=== PATIENT | female | born 1995 | race Caucasian/White ===

== ENCOUNTER 2019-06-09 11:14 | Inpatient (IN) | payer OTHER ==
[2019-06-09] MEDS ORDERED: METHYLERGONOVINE 0.2 MG INJ IM (14:30)
[2019-06-09] MEDS ORDERED: LIDOCAINE 1% (MPF) 30 ML INJ INJ (14:30)
[2019-06-09] MEDS ORDERED: OXYTOCIN 30 UNITS/LR 500 ML IV ×3 (14:30)
[2019-06-09] MEDS ORDERED: MISOPROSTOL 200 MCG TAB PR (14:30)
[2019-06-09] MEDS ORDERED: CARBOPROST 250 MCG INJ IM (14:30)
[2019-06-09 15:13] LABS: ADD MAN DIFF? NO
[2019-06-09 15:18] LABS: WHITE BLOOD COUNT 11.5 10^3/ul (4.8-10.8)
[2019-06-09 15:18] LABS: BASOPHIL # 0.1 10^3/ul (0.0-0.1); BASOPHILS % 0.6 % (0.0-2.0); EOSINOPHILS % 0.3 % (0.0-7.0); HEMOGLOBIN 9.9 g/dl (12.0-16.0); LYMPHOCYTES # 2.3 10^3/ul (0.8-2.9); LYMPHOCYTES % 19.6 % (15.0-51.0); MEAN CORPUSCULAR HEMOGLOBIN 22.3 pg (29.0-33.0); MEAN CORPUSCULAR VOLUME 74.3 fl (82.0-101.0); MEAN PLATELET VOLUME 10.3 fl (7.4-10.4); MONOCYTE # 0.4 10^3/ul (0.3-0.9); MONOCYTES % 3.6 % (0.0-11.0); NEUTROPHIL # 8.6 10^3/ul (1.6-7.5); NEUTROPHILS % 75.4 % (39.0-77.0); NUCLEATED RED BLOOD CELLS% 0.2 /100WBC (0.0-0.0); PLATELET COUNT 336 10^3/UL (140-415); RED BLOOD COUNT 4.44 10^6/ul (4.20-5.40); RED CELL DISTRIBUTION WIDTH 16.8 % (11.5-14.5)
[2019-06-09] MEDS: LACTATED RINGER'S 1,000 ML IV ×2 (15:23→22:58)
[2019-06-09 15:37] LABS: PROTIME 12.3 Sec (11.9-14.9)
[2019-06-09 15:38] LABS: PARTIAL THROMBOPLASTIN TIME 22.1 Sec (23.0-35.0)
[2019-06-09 16:10] LABS: HEPATITIS B SURFACE ANTIGEN NEGATIVE (NEGATIVE)
[2019-06-09] MEDS: OXYTOCIN 30 UNITS/LR 500 ML IV (22:05)
[2019-06-10] MEDS ORDERED: LACTATED RINGER'S 1,000 ML IV (01:12)
[2019-06-10] MEDS: BUTORPHANOL 2 MG INJ IV (01:19)
[2019-06-10] MEDS ORDERED: MINERAL OIL LIGHT 10 ML VIAL TOP (01:30)
[2019-06-10] MEDS ORDERED: FENTAnyl 2MCG/ML-ROPIV 0.2% 100 ML (02:36)
[2019-06-10] MEDS ORDERED: NALOXONE (0.4 MG/ML) INJ IV (03:00)
[2019-06-10] MEDS ORDERED: FENTAnyl 2MCG/ML-ROPIV 0.2% 100 ML BAG EPI (03:00)
[2019-06-10] MEDS: LACTATED RINGER'S 1,000 ML IV (04:00)
[2019-06-10] MEDS: LACTATED RINGER'S 1,000 ML IV* ×3 (07:37→23:37)
[2019-06-10] MEDS ORDERED: CARBOPROST 250 MCG INJ IM (08:00)
[2019-06-10] MEDS ORDERED: HYDROCODONE/APAP (5/325) TAB PO (08:00)
[2019-06-10] MEDS ORDERED: OXYTOCIN 30 UNITS/LR 500 ML IV (08:00)
[2019-06-10] MEDS ORDERED: METHYLERGONOVINE 0.2 MG INJ IM (08:00)
[2019-06-10] MEDS ORDERED: MISOPROSTOL 200 MCG TAB PR (08:00)
[2019-06-10] MEDS: IBUPROFEN 600 MG TAB PO ×3 (12:23→20:10)
[2019-06-10] MEDS: LANOLIN HPA 1 PKT TOP (12:24)
[2019-06-10] MEDS: BENZOCAINE 20% 56 ML SPRAY TOP (12:24)
[2019-06-10] MEDS: OXYTOCIN 30 UNITS/LR 500 ML IV ×2 (15:09→17:37)
[2019-06-10 15:11] LABS: RAPID PLASMA REAGIN NONREACTIVE (NR)
[2019-06-11] MEDS: IBUPROFEN 600 MG TAB PO ×3 (05:43→17:54)
[2019-06-11] MEDS: LACTATED RINGER'S 1,000 ML IV* ×3 (07:37→23:37)
[2019-06-11 08:52] LABS: ADD MAN DIFF? NO
[2019-06-11 08:55] LABS: WHITE BLOOD COUNT 13.6 10^3/ul (4.8-10.8)
[2019-06-11 08:55] LABS: BASOPHIL # 0.1 10^3/ul (0.0-0.1); BASOPHILS % 0.5 % (0.0-2.0); EOSINOPHILS # 0.1 10^3/ul (0.0-0.5); EOSINOPHILS % 0.8 % (0.0-7.0); HEMATOCRIT 29.5 % (37.0-47.0); HEMOGLOBIN 8.8 g/dl (12.0-16.0); LYMPHOCYTES # 2.2 10^3/ul (0.8-2.9); LYMPHOCYTES % 16.3 % (15.0-51.0); MEAN CORPUSCULAR HEMOGLOBIN 22.6 pg (29.0-33.0); MEAN CORPUSCULAR HGB CONC 29.8 g/dl (32.0-37.0); MEAN CORPUSCULAR VOLUME 75.6 fl (82.0-101.0); MEAN PLATELET VOLUME 9.9 fl (7.4-10.4); MONOCYTE # 0.7 10^3/ul (0.3-0.9); MONOCYTES % 4.9 % (0.0-11.0); NEUTROPHIL # 10.4 10^3/ul (1.6-7.5); NEUTROPHILS % 76.9 % (39.0-77.0); PLATELET COUNT 279 10^3/UL (140-415); RED CELL DISTRIBUTION WIDTH 17.2 % (11.5-14.5)
[2019-06-11] MEDS: FERROUS SULFATE (EC) 325 MG TAB PO (10:14)
[2019-06-11] MEDS: ASCORBIC ACID 500 MG TAB PO (10:14)
[2019-06-11] MEDS: LANOLIN HPA 1 PKT TOP (20:28)
[2019-06-12] MEDS: IBUPROFEN 600 MG TAB PO ×3 (00:27→12:09)
[2019-06-12 06:05] LABS: ADD MAN DIFF? NO
[2019-06-12 06:12] LABS: WHITE BLOOD COUNT 9.9 10^3/ul (4.8-10.8)
[2019-06-12 06:12] LABS: BASOPHIL # 0.1 10^3/ul (0.0-0.1); BASOPHILS % 0.7 % (0.0-2.0); EOSINOPHILS # 0.1 10^3/ul (0.0-0.5); EOSINOPHILS % 0.7 % (0.0-7.0); HEMATOCRIT 29.7 % (37.0-47.0); HEMOGLOBIN 8.8 g/dl (12.0-16.0); LYMPHOCYTES % 19.9 % (15.0-51.0); MEAN CORPUSCULAR HEMOGLOBIN 22.5 pg (29.0-33.0); MEAN CORPUSCULAR HGB CONC 29.6 g/dl (32.0-37.0); MEAN PLATELET VOLUME 9.6 fl (7.4-10.4); MONOCYTE # 0.7 10^3/ul (0.3-0.9); MONOCYTES % 6.9 % (0.0-11.0); NEUTROPHIL # 7.1 10^3/ul (1.6-7.5); NEUTROPHILS % 71.4 % (39.0-77.0); PLATELET COUNT 289 10^3/UL (140-415); RED BLOOD COUNT 3.91 10^6/ul (4.20-5.40); RED CELL DISTRIBUTION WIDTH 17.3 % (11.5-14.5)
[2019-06-12] MEDS: FERROUS SULFATE (EC) 325 MG TAB PO (08:56)
[2019-06-12] MEDS: ASCORBIC ACID 500 MG TAB PO (08:57)
[2019-06-12] MEDS: DIPHTH/TET/ACEL PERTUSS (ADULT) 0.5 ML VIAL IM* (10:23)
== END 2019-06-12 18:25 | disposition home or self-care (01) | DRG 806 ==
LOC: OBT 11:14 → PP1 06-10 10:21 → L-D 11:14 → OBT 14:20 → L-D 14:20
PROVIDERS: Obstetrics & Gynecology
PROC: 10E0XZZ Delivery of Products of Conception, External Approach (ICD-10-PCS; principal; 2019-06-10)
PROC: 0KQM0ZZ Repair Perineum Muscle, Open Approach (ICD-10-PCS; 2019-06-10)
DX: O70.1 Second degree perineal laceration during delivery (principal); D62 Acute posthemorrhagic anemia; Z37.0 Single live birth; O99.02 Anemia complicating childbirth; Z3A.38 38 weeks gestation of pregnancy
CPT/HCPCS: 62322; 76818; 85025; 85610; 85730; 86592; 86850; 86900; 86901; 87340; 90715